=== PATIENT | female | born 1960 | race Two or more races ===

== ENCOUNTER 2020-03-25 10:06 | Outpatient (CLI) | payer OTHER | END 2020-03-25 14:35 | disposition home or self-care (01) | LOC: OFIC 805 10:06 | PROVIDERS: ATTEND Otolaryngology Otology & Neurotology | DX: H90.3 Sensorineural hearing loss, bilateral (principal); R42 Dizziness and giddiness; H83.03 Labyrinthitis, bilateral; R09.82 Postnasal drip ==

== ENCOUNTER 2020-07-04 15:04 | Outpatient (CLI) | payer OTHER | END 2020-07-04 16:55 | disposition home or self-care (01) | LOC: OFIC 805 15:04 | PROVIDERS: ATTEND Otolaryngology Otology & Neurotology | DX: H90.3 Sensorineural hearing loss, bilateral (principal); R42 Dizziness and giddiness ==

== ENCOUNTER 2021-05-18 10:46 | Outpatient (CLI) | payer OTHER | END 2021-05-18 11:34 | disposition home or self-care (01) | LOC: ASH CLINIC 10:46 | PROVIDERS: ATTEND Internal Medicine Cardiovascular Disease | DX: U07.1 COVID-19 (principal); Z23 Encounter for immunization ==